=== PATIENT | male | born 1950 | race American Indian/Alaskan Native ===

== ENCOUNTER 2020-07-07 01:09 | Inpatient (IN) | payer BC, MEDICARE ==
--- NOTE | 2020-07-07 01:34 | Emergency Department Report ---
ED Shortness of Breath HPI - General Stated Complaint: POSS STEMI Time Seen by Provider: 07/07/20 01:14 Source: patient, EMS - History of Present Illness Initial Comments: Patient is 70 years old male with no past medical history per patient report however he indicated that he does not follow-up with his doctor because he did not need to do that. Patient brought to the emergency room via EMS from home for evaluation of shortness of breath and generalized weakness. Patient stated that symptoms started few days ago and he went to [facility] and gave him some medication in the ER and sent him home. Patient came with medication of ciprofloxacin and Flagyl and lactulose. Patient denied any fever or chills. MD Complaint: shortness of breath -: Last night - Related Data Previous Rx's Medication Instructions Recorded Last Taken Type Clindamycin [Clindamycin CAP] 300 mg PO Q8H #20 cap 08/09/13 Unknown Rx Allergies Allergy/AdvReac Type Severity Reaction Status Date / Time No Known Allergies Allergy Verified 07/07/20 02:34 ED Review of Systems ROS: Stated complaint: POSS STEMI Other details as noted in HPI Comment: All other systems reviewed and negative Constitutional: denies: chills, fever Respiratory: shortness of breath, SOB with exertion, SOB at rest. denies: cough Cardiovascular: denies: chest pain, palpitations, dyspnea on exertion Gastrointestinal: denies: abdominal pain, nausea, vomiting Musculoskeletal: denies: back pain Neurological: denies: headache, weakness ED Past Medical Hx - Social History Smoking Status: Current Every Day Smoker Substance Use Type: Alcohol - Medications Home Medications: Home Medications Medication Instructions Recorded Confirmed Last Taken Type Clindamycin [Clindamycin CAP] 300 mg PO Q8H #20 cap 08/09/13 Unknown Rx ED Physical Exam - General General appearance: alert, in no apparent distress - Head Head exam: Present: atraumatic, normocephalic, normal inspection - Eye Eye exam: Present: normal appearance - ENT ENT exam: Present: normal exam, normal orophraynx, mucous membranes moist - Neck Neck exam: Present: normal inspection, full ROM. Absent: tenderness, meningismus - Respiratory Respiratory exam: Present: normal lung sounds bilaterally - Cardiovascular Cardiovascular Exam: Present: regular rate, normal rhythm, normal heart sounds - GI/Abdominal GI/Abdominal exam: Present: soft, normal bowel sounds. Absent: distended, tenderness, guarding, rebound, rigid, organomegaly, mass, bruit, pulsatile mass, hernia - Extremities Exam Extremities exam: Present: normal inspection, full ROM, normal capillary refill. Absent: tenderness - Back Exam Back exam: Present: normal inspection, full ROM. Absent: CVA tenderness (R), CVA tenderness (L) - Neurological Exam Neurological exam: Present: alert, oriented X3, CN II-XII intact - Psychiatric Psychiatric exam: Present: normal mood - Skin Skin exam: Present: warm, intact, normal color ED Course Vital Signs 07/07/20 07/07/20 07/07/20 01:18 01:30 01:33 Temperature 94.3 F L Pulse Rate 105 H 29 L Respiratory 38 H 29 H Rate Blood Pressure 135/79 143/79 Blood Pressure 143/79 [Right] O2 Sat by Pulse 97 98 98 Oximetry 07/07/20 07/07/20 07/07/20 02:00 02:30 03:00 Temperature Pulse Rate 102 H 102 H 100 H Respiratory 26 H 31 H 26 H Rate Blood Pressure 135/76 136/91 124/81 Blood Pressure [Right] O2 Sat by Pulse 99 99 100 Oximetry 07/07/20 07/07/20 07/07/20 03:06 03:30 04:00 Temperature Pulse Rate 100 H 87 80 Respiratory 27 H 26 H 24 Rate Blood Pressure 136/91 133/78 152/103 Blood Pressure [Right] O2 Sat by Pulse 100 100 Oximetry 07/07/20 07/07/20 07/07/20 04:10 04:16 04:20 Temperature Pulse Rate 65 61 125 H Respiratory 20 Rate Blood Pressure Blood Pressure [Right] O2 Sat by Pulse 97 Oximetry 07/07/20 07/07/20 07/07/20 04:26 04:30 04:36 Temperature Pulse Rate 110 H 146 H 108 H Respiratory 27 H 38 H Rate Blood Pressure Blood Pressure [Right] O2 Sat by Pulse 95 87 Oximetry 07/07/20 07/07/20 07/07/20 04:40 04:46 04:50 Temperature Pulse Rate 124 H 126 H 124 H Respiratory 22 16 20 Rate Blood Pressure 107/38 107/38 Blood Pressure [Right] O2 Sat by Pulse 100 Oximetry 07/07/20 07/07/20 07/07/20 04:56 05:00 05:05 Temperature Pulse Rate 101 H 101 H 97 H Respiratory 20 20 21 Rate Blood Pressure 107/38 121/93 74/56 Blood Pressure [Right] O2 Sat by Pulse Oximetry 07/07/20 07/07/20 07/07/20 05:10 05:16 05:20 Temperature Pulse Rate 91 H 66 68 Respiratory 22 Rate Blood Pressure 91/72 Blood Pressure [Right] O2 Sat by Pulse 99 91 96 Oximetry - Reevaluation(s) Reevaluation #1: 07/07/20 01:19 I discussed the patient with Dr. Arshad, cardiology group activities aide operations intern due to EKG concerning for STEMI. He reviewed the EKG and stated that EKG is not consistent with STEMI. Reevaluation #2: 07/07/20 02:05 Patient sitting in the bed in no acute distress. He stated that he is feeling better. Oxygen saturation is 96% on room air. Reevaluation #3: 07/07/20 05:07 I was called to the room to assess patient is not responding. Patient does not have a pulse. CODE BLUE immediately initiated. ACLS protocol initiated. Initial rhythm showed PEA. Patient intubated by me. After several rounds of CPR patient has ROSC. Right femoral triple-lumen inserted by me for resuscitation. For further information please refer to code sheets. Reevaluation #4: 07/07/20 05:52 I was called to the room again for patient losing his pulse. ACLS protocol reinitiated. CPR continued. Rhythm showing PEA for 2 rounds of CPR and then change to asystole. Patient pronounced at 5:38 AM. No family around. - Central Line Placement Right Femoral Consent Obtained: emergent situation Time Out Performed: Yes Patient Placed on Monitor/Pulse Ox: Yes MD Prep: mask, gown, gloves Central Line Prep: Povidone-Iodine 1%, Chlorhexidine scrub, sterile drapes applied Local Anesthesia Used: Lidocaine 1% Central Line Lumen Inserted: triple Reason for Insertion: Volume Resuscitation Central Line Position: good blood return, all ports aspirated, flus, sutured in place with 2-0 Dressing Applied: Tegaderm, sterile gauze/tape Post Procedure X-Ray: tip of catheter in good p Patient Tolerated Procedure: well, no complications Complications: none - Intubation Time Out Performed: Yes Sedative: none Laryngoscope: Odilon Size: 4 ET Tube Size: 7.5 Tube Secured Location: teeth Tube Placement Confirmation: visualized tube passing t, equal breath sounds bilat, no breath sounds over epi, confirmation by capnometr Patient Tolerated Procedure: well, no complications Intubation Complications: none ED Medical Decision Making - Lab Data Result diagrams: 07/07/20 01:30 07/07/20 02:00 - EKG Data -: EKG Interpreted by Me EKG shows normal: sinus rhythm Rate: tachycardia - Radiology Data Radiology results: report reviewed - Medical Decision Making Patient is 70 years old male with no past medical history per patient report however he indicated that he does not follow-up with his doctor because he did not need to do that. Patient brought to the emergency room via EMS from home for evaluation of shortness of breath and generalized weakness. Patient stated that symptoms started few days ago and he went to [facility] and gave him some medication in the ER and sent him home. Patient came with medication of ciprofloxacin and Flagyl and lactulose. Patient denied any fever or chills. Patient found to be hypothermic with a temperature of 94. Per hugger started. Sepsis protocol initiated. Patient seem to be in congestive heart failure, new diagnosis. Patient gently hydrated with normal saline at 250 mL/h. Lactic acid is 6.9. Chest x-ray showed right lower lobe infiltrate consistent with right lower lobe pneumonia. Patient received Rocephin, Zithromax and Zofran. I discussed the patient with Dr. Arora, he agreed to admit the patient to medical service for further management. Critical Care Time: Yes Critical care time in (mins) excluding proc time.: 45 Critical care attestation.: If time is entered above; I have spent that time in minutes in the direct care of this critically ill patient, excluding procedure time. ED Disposition Clinical Impression: Sepsis, Hypothermia, Right lower lobe pneumonia, New onset of congestive heart failure, Lactic acidosis, Cardiopulmonary arrest Disposition: DC-20 Is pt being admited?: Yes Condition: Stable Instructions: Bacterial Pneumonia (ED) Referrals: PRIMARY CARE, [Primary Care Provider] - 3-5 Days
[2020-07-07 01:53] LABS: Basophils % (Auto) 0.4 % (0.0-1.8); Eosinophils % (Auto) 0.1 % (0.0-4.3); Hematocrit 39.5 % (35.5-45.6); Hemoglobin 13.5 gm/dl (11.8-15.2); Lymphocytes # (Auto) 0.7 K/mm3 (1.2-5.4); Lymphocytes % (Auto) 11.5 % (13.4-35.0); Mean Corpuscular HGB Conc 34 % (32-34); Mean Corpuscular Volume 99 fl (84-94); Monocytes # (Auto) 0.6 K/mm3 (0.0-0.8); Monocytes % (Auto) 9.8 % (0.0-7.3); Platelet Count 272 K/mm3 (140-440); Red Cell Distribution Width 14.6 % (13.2-15.2)
--- NOTE | 2020-07-07 02:03 | XRay Report ---
CHEST 1 VIEW 07/07/2020 12:53 AM INDICATION / CLINICAL INFORMATION: Dyspnea. COMPARISON: None available. FINDINGS: SUPPORT DEVICES: None. HEART / MEDIASTINUM: Moderate cardiomegaly. LUNGS / PLEURA: Basilar effusions with associated volume loss right greater than left. Effusions appe ar relatively small. Superimposed moderate infiltrate right mid/lower zone. No pneumothorax. ADDITIONAL FINDINGS: No significant additional findings. IMPRESSION: 1. Right basilar pneumonia. 2. Small basilar effusions with associated volume loss right greater than left. Signer Name: Manuel Arceo MD Signed: 07/07/2020 1:58 AM Workstation Name: [id number]
[2020-07-07 02:09] LABS: INR 1.44 (0.87-1.13)
[2020-07-07 02:12] LABS: BUN/Creatinine Ratio 11; Blood Urea Nitrogen 13 mg/dL (9-20); Calcium 8.5 mg/dL (8.4-10.2); Hemolysis Index 7
[2020-07-07 02:14] LABS: Albumin 3.5 g/dL (3.9-5); Bilirubin,Direct 0.5 mg/dL (0-0.2)
[2020-07-07] MEDS ORDERED: cefTRIAXone/NS 1 GM/50 ML 1 GM/50 ML BAG IV ONE (02:30)
[2020-07-07] MEDS ORDERED: SODIUM CHLORIDE 0.9% 1000 ML 1,000 ML IV ONE (02:30)
[2020-07-07] MEDS ORDERED: AZITHROMYCIN/NS 500 MG/250 ML 500 MG/250 ML BAG IV ONE (02:30)
[2020-07-07] MEDS ORDERED: ONDANSETRON 4 MG/2 ML INJ IV ONE (02:31)
[2020-07-07 02:48] LABS: HDL Cholesterol 64 mg/dL (40-59); LDL Cholesterol,Direct 59 mg/dL (50-130)
[2020-07-07] MEDS: METOCLOPRAMIDE 10 MG/2 ML INJ IV ONE ×2 (04:16→05:59)
[2020-07-07] MEDS ORDERED: EPINEPHrine 1 MG/10 ML SYRINGE ONE (04:19)
[2020-07-07] MEDS ORDERED: SODIUM BICARB 8.4% 50 MEQ/50 ML SYRINGE IV ONE (04:19)
[2020-07-07] MEDS ORDERED: NORepinephrine/NS 4 MG-250 ML 4 MG/250 ML BAG IV ONE (04:53)
[2020-07-07] MEDS ORDERED: ONDANSETRON 4 MG/2 ML INJ IV PRN (04:59)
--- NOTE | 2020-07-07 05:16 | History and Physical Report ---
History of Present Illness Date of examination: 07/07/20 Date of admission: 07/07/2020 Chief complaint: Shortness of breath History of present illness: Patient is a 70-year-old male with no significant past medical history who reports to the emergency room today with complaint of shortness of breath and generalized weakness. Symptoms were said to have started few days ago and was seen at [facility] where he was given some medication and discharged home. Was said to have brought bottles of ciprofloxacin, Flagyl and lactulose. Called to have patient admitted unto the hospitalist service by the ER physician. However upon my arrival in the emergency room patient was being coded as he had gone into cardiopulmonary arrest. He was resuscitated by the ER physician and placed on Levophed. I evaluated patient status post intubation. Patient later coded a second time by the ER physician but all resuscitative measures were futile. Patient was pronounced at 5:38 AM on07/07/2020 Past History Past Medical History: No medical history, other (Unknown) Past Surgical History: Other (Unknown) Social history: other (Unknown) Family history: other (Unknown) Medications and Allergies Allergies Allergy/AdvReac Type Severity Reaction Status Date / Time No Known Allergies Allergy Verified 07/07/20 02:34 Home Medications Medication Instructions Recorded Confirmed Last Taken Type Clindamycin [Clindamycin CAP] 300 mg PO Q8H #20 cap 08/09/13 Unknown Rx Active Meds: Active Medications Furosemide (Furosemide 20 Mg/2 Ml Inj) 20 mg IV BID@0600,1800 ERICK Heparin Sodium (Porcine) (Heparin 5,000 Unit/1 Ml Vial) 5,000 unit SUB-Q Q8HR [facility] Sodium Chloride (Nacl 0.9% 1000 Ml) 1,000 mls @ 250 mls/hr IV ONCE ONE Stop: 07/07/20 06:29 Last Admin: 07/07/20 02:39 Dose: 250 mls/hr Documented by: Ceftriaxone Sodium (Rocephin/Ns 2 Gm/100 Ml) 2 gm in 100 mls @ 200 mls/hr IV Q24H ERICK; Protocol Azithromycin (Zithromax/Ns) 500 mg in 250 mls @ 250 mls/hr IV Q24H ERICK; Protocol Ondansetron HCl (Ondansetron 4 Mg/2 Ml Inj) 4 mg IV Q8H PRN PRN Reason: Nausea And Vomiting Sodium Chloride (Sodium Chloride 0.9% 10 Ml Flush Syringe) 10 ml IV BID ERICK Sodium Chloride (Sodium Chloride 0.9% 10 Ml Flush Syringe) 10 ml IV PRN PRN PRN Reason: LINE FLUSH Review of Systems ROS unobtainable: due to endotracheal tube, due to mental status Exam - Constitutional Vitals: Temp Pulse Resp BP Pulse Ox 94.3 F L 102 H 31 H 136/91 99 07/07/20 01:33 07/07/20 02:30 07/07/20 02:30 07/07/20 02:30 07/07/20 02:30 General appearance: Present: well-nourished, other (Intubated) - EENT Eyes: Present: PERRL, EOM intact. Absent: scleral icterus ENT: hearing intact, clear oral mucosa, dentition normal - Neck Neck: Present: supple, normal ROM - Respiratory Respiratory: bilateral: rales - Cardiovascular Rhythm: regular Heart Sounds: Present: S1 & S2. Absent: gallop, systolic murmur, diastolic murmur, rub, click - Extremities Extremities: no ischemia, pulses intact, pulses symmetrical, normal temperature, normal color, Full ROM Extremity abnormal: edema (1+ Bilateral ankle edema) Peripheral Pulses: within normal limits - Abdominal General gastrointestinal: Present: soft, non-tender, non-distended, normal bowel sounds. Absent: mass - Integumentary Integumentary: Present: clear, warm, dry, normal turgor. Absent: rash - Psychiatric Psychiatric: cooperative - Neurologic Neurologic: CNII-XII intact, other (Intubated and sedated.) HEART Score - HEART Score Troponin: Troponin T 0.464 ng/mL (0.00-0.029) H* 07/07/20 01:30 Results - Labs CBC & Chem 7: 07/07/20 01:30 07/07/20 02:00 Labs: Abnormal lab results 07/07/20 07/07/20 07/07/20 Range/Units 01:30 01:30 01:30 MCV 99 H (84-94) fl MCH 34 H (28-32) pg Lymph % (Auto) 11.5 L (13.4-35.0) % Craig % (Auto) 9.8 H (0.0-7.3) % Lymph # (Auto) 0.7 L (1.2-5.4) K/mm3 Seg Neutrophils % 78.2 H (40.0-70.0) % PT 17.4 H (12.2-14.9) Sec. INR 1.44 H (0.87-1.13) Sodium 127 L (137-145) mmol/L Chloride 91.3 L (98-107) mmol/L Carbon Dioxide 17 L (22-30) mmol/L Glucose 192 H (75-100) mg/dL Lactic Acid (0.7-2.0) mmol/L Direct Bilirubin (0-0.2) mg/dL AST (5-40) units/L ALT (7-56) units/L Alkaline Phosphatase (35-129) units/L Troponin T 0.464 H* (0.00-0.029) ng/mL NT-Pro-B Natriuret Pep (0-900) pg/mL Total Protein (6.3-8.2) g/dL Albumin (3.9-5) g/dL HDL Cholesterol 64 H (40-59) mg/dL 07/07/20 07/07/20 Range/Units 01:30 01:30 MCV (84-94) fl MCH (28-32) pg Lymph % (Auto) (13.4-35.0) % Craig % (Auto) (0.0-7.3) % Lymph # (Auto) (1.2-5.4) K/mm3 Seg Neutrophils % (40.0-70.0) % PT (12.2-14.9) Sec. INR (0.87-1.13) Sodium (137-145) mmol/L Chloride (98-107) mmol/L Carbon Dioxide (22-30) mmol/L Glucose (75-100) mg/dL Lactic Acid 6.90 H* (0.7-2.0) mmol/L Direct Bilirubin 0.5 H (0-0.2) mg/dL AST 155 H (5-40) units/L ALT 93 H (7-56) units/L Alkaline Phosphatase 181 H (35-129) units/L Troponin T (0.00-0.029) ng/mL NT-Pro-B Natriuret Pep 02370 H (0-900) pg/mL Total Protein 5.4 L (6.3-8.2) g/dL Albumin 3.5 L (3.9-5) g/dL HDL Cholesterol (40-59) mg/dL Assessment and Plan Assessment: 1. Pneumonia, will rule out COVID-19 2. Congestive heart failure 3. Severe sepsis 4. Hypothermia 5. Lactic acidosis 6. Respiratory failure 7. Elevated troponin 8. Elevated liver enzymes Plan: Patient admitted into the intensive care unit Empiric IV antibiotics started in the ER Patient also placed on Levophed after successful resuscitation in the ER Patient was coded a second time in the emergency room. All resuscitative measures were futile in the emergency room and patient pron ounced by the ER physician.
[2020-07-07 05:21] LABS: C-Reactive Protein 0.5 mg/dL (0.00-1.30)
[2020-07-07 05:29] VITALS: BP 91/72
[2020-07-07] MEDS ORDERED: HEPARIN 5,000 UNIT/1 ML VIAL SUB-Q SCH (06:00)
[2020-07-07] MEDS ORDERED: FUROSEMIDE 20 MG/2 ML INJ IV SCH (06:00)
[2020-07-08] MEDS ORDERED: cefTRIAXone/NS 2 GM/100 ML 2 GM/100 ML BAG IV SCH (02:30)
[2020-07-08] MEDS ORDERED: AZITHROMYCIN/NS 500 MG/250 ML 500 MG/250 ML BAG IV SCH (03:00)
--- NOTE | 2020-07-08 11:55 | Electrocardiograph Report ---
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
== END 2020-07-07 05:58 | DRG 871 ==
LOC: ED 01:09 → CC1 01:10 → UNDOADMIN 04:07 → ED 05:58
PROVIDERS: ADMIT Emergency Medicine; ATTEND Emergency Medicine
PROC: 5A1935Z Respiratory Ventilation, Less than 24 Consecutive Hours (ICD-10-PCS; principal; 2020-07-07)
PROC: 0BH17EZ Insertion of Endotracheal Airway into Trachea, Via Natural or Artificial Opening (ICD-10-PCS; 2020-07-07)
PROC: 06HM33Z Insertion of Infusion Device into Right Femoral Vein, Percutaneous Approach (ICD-10-PCS; 2020-07-07)
PROC: 5A12012 Performance of Cardiac Output, Single, Manual (ICD-10-PCS; 2020-07-07)
DX: A41.9 Sepsis, unspecified organism (principal); J18.9 Pneumonia, unspecified organism; J96.90 Respiratory failure, unspecified, unspecified whether with hypoxia or hypercapnia; Z20.822 Contact with and (suspected) exposure to COVID-19; I50.9 Heart failure, unspecified; F17.200 Nicotine dependence, unspecified, uncomplicated; R68.0 Hypothermia, not associated with low environmental temperature; R65.20 Severe sepsis without septic shock; I46.9 Cardiac arrest, cause unspecified; Z79.899 Other long term (current) drug therapy
CPT/HCPCS: 31500; 36415; 71045; 80048; 80061; 80076; 82140; 82728; 82947; 82962; 83615; 83880; 84145; 84484; 85025; 85379; 85610; 85730; 86140; 87040; 93005; 94002; 96361; 96365; 96375; G0378; J0171; J0456; J0696; J2405; J2765; J7030